=== PATIENT | male | born 1960 | race African-American/Black ===

== ENCOUNTER 2025-05-13 10:49 | Inpatient (IN) | payer OTHER, MEDICAID ==
[~2025-05-13] VITALS: Ht 185.4 cm; Wt 94.3 kg
[2025-05-13 10:55] VITALS: O2SAT 96
[2025-05-13 11:58] LABS: BASOPHILS % 0.5 % (0.0-2.0); EOSINOPHILS % 1.6 % (0.0-5.0); HEMATOCRIT. 46.4 % (42.0-52.0); HEMOGLOBIN. 15.3 g/dL (14.0-18.0); LYMPHOCYTES % 11.6 % (20.0-50.0); MEAN PLATELET VOLUME 8.2 fl (7.4-10.4); MONOCYTES % 5.9 % (2.0-8.0); NEUTROPHILS % 80.4 % (40.0-76.0); PLATELET 195 x1000/uL (130-400); RED BLOOD CELL COUNT 4.91 mill/uL (4.7-6.1); RED CELL DISTRIBUTION WIDTH 15.3 % (11.6-14.6)
[2025-05-13 12:13] LABS: CREATININE 1.0 mg/dL (0.6-1.3); UREA NITROGEN BLOOD 5 mg/dL (9-23)
[2025-05-13 12:14] LABS: TROPONIN I HIGH SENSITIVITY 6 ng/L (3.0-53)
[2025-05-13] MEDS: SODIUM CHLORIDE 0.9% 1,000 ML IV ONE (14:32)
[2025-05-13] MEDS: LORAZEPAM 2MG/ML UD SYRINGE IV SCH (14:32)
[2025-05-13 14:56] LABS: *AMPHETAMINES SCREEN URINE NEGATIVE (NEGATIVE); *BARBITURATES SCREEN URINE NEGATIVE (NEGATIVE); *BENZODIAZEPINES SCREEN URINE NEGATIVE (NEGATIVE); *COCAINE SCREEN URINE PRESUMPTIVE POSITIVE (NEGATIVE); METHADONE URINE SCREEN NEGATIVE (NEGATIVE); OPIATES URINE SCREEN NEGATIVE (NEGATIVE); PHENCYCLIDINE URINE SCREEN NEGATIVE (NEGATIVE)
[2025-05-13 14:57] LABS: CANNABINOID URINE SCREEN NEGATIVE (NEGATIVE); ECSTASY MDMA SCREEN URINE NEGATIVE (NEGATIVE)
[2025-05-13] MEDS ORDERED: LORA-249 MT (17:42)
[2025-05-14] MEDS ORDERED: MAGNESIUM/ALUMINUM HYDROXIDE/SIMETHICONE 30ML UDC PO PRN
[2025-05-14] MEDS ORDERED: ACETAMINOPHEN 325MG TABLET PO PRN ×2
[2025-05-14] MEDS ORDERED: ONDANSETRON HCL 4MG/2ML INJ IV PRN
[2025-05-14] MEDS ORDERED: CLONIDINE 0.1MG TABLET PO PRN
[2025-05-14 01:18] VITALS: BP 142/109; PULSE 71; RESP 21; TEMP 36.696
[2025-05-14] MEDS: NICOTINE 14MG PATCH TD SCH (05:50)
[2025-05-14 08:00] VITALS: BP 132/78; PULSE 86; RESP 16; TEMP 36.5
[2025-05-14] MEDS: PANTOPRAZOLE SODIUM 40 MG/VIAL IV SCH (09:00)
[2025-05-14] MEDS: ENOXAPARIN 40MG/0.4ML SYR SUBCUT SCH (09:19)
[2025-05-14 12:00] VITALS: BP 127/81; PULSE 81; RESP 18; TEMP 36.6; O2SAT 98
[2025-05-14 15:53] LABS: BASOPHILS % 0.5 % (0.0-2.0); EOSINOPHILS % 2.6 % (0.0-5.0); HEMATOCRIT. 44.0 % (42.0-52.0); HEMOGLOBIN. 14.9 g/dL (14.0-18.0); LYMPHOCYTES % 23.5 % (20.0-50.0); MEAN PLATELET VOLUME 8.4 fl (7.4-10.4); MONOCYTES % 6.1 % (2.0-8.0); NEUTROPHILS % 67.3 % (40.0-76.0); PLATELET 204 x1000/uL (130-400); RED BLOOD CELL COUNT 4.72 mill/uL (4.7-6.1); RED CELL DISTRIBUTION WIDTH 15.5 % (11.6-14.6)
[2025-05-14 16:00] VITALS: BP 130/79; PULSE 87; RESP 18; TEMP 36.6; O2SAT 99
[2025-05-14 16:07] LABS: CREATININE 1.0 mg/dL (0.6-1.3)
[2025-05-14 16:08] LABS: LDL CHOLESTEROL 166 mg/dL (5-100); TRIGLYCERIDE 108 mg/dL (0-150); TROPONIN I HIGH SENSITIVITY 10 ng/L (3.0-53); UREA NITROGEN BLOOD 8 mg/dL (9-23)
[2025-05-14 16:09] LABS: ASPARTATE AMINOTRANSFERASE 13 IU/L (<34)
[2025-05-14 16:10] LABS: BILIRUBIN DIRECT 0.1 mg/dL (<=3.0); BILIRUBIN TOTAL 0.5 mg/dL (0.1-1.0); PHOSPHORUS 2.3 mg/dL (2.5-4.9); PROTEIN TOTAL 6.8 g/dL (6.0-8.3)
[2025-05-14 16:12] LABS: T4 FREE 1.12 ng/dL (0.89-1.76)
[2025-05-14 16:38] LABS: INR 1.0
[2025-05-14 20:11] VITALS: BP 143/100; PULSE 103; RESP 20; TEMP 36.7; O2SAT 97
[2025-05-15 00:27] VITALS: BP 156/106; PULSE 78; RESP 19; TEMP 36.4; O2SAT 96
[2025-05-15 04:30] VITALS: BP 141/102; PULSE 89; RESP 18; TEMP 36.6; O2SAT 98
[2025-05-15 07:30] LABS: CREATININE 1.0 mg/dL (0.6-1.3); UREA NITROGEN BLOOD 9 mg/dL (9-23)
[2025-05-15 07:39] LABS: BASOPHILS % 0.3 % (0.0-2.0); EOSINOPHILS % 3.0 % (0.0-5.0); HEMATOCRIT. 44.9 % (42.0-52.0); HEMOGLOBIN. 15.0 g/dL (14.0-18.0); LYMPHOCYTES % 24.6 % (20.0-50.0); MEAN PLATELET VOLUME 8.1 fl (7.4-10.4); MONOCYTES % 7.4 % (2.0-8.0); NEUTROPHILS % 64.7 % (40.0-76.0); PLATELET 214 x1000/uL (130-400); RED BLOOD CELL COUNT 4.87 mill/uL (4.7-6.1); RED CELL DISTRIBUTION WIDTH 15.1 % (11.6-14.6)
[2025-05-15 08:00] VITALS: BP 147/90; PULSE 76; RESP 20; TEMP 36.5; O2SAT 99
[2025-05-15 12:00] VITALS: BP 129/92; PULSE 78; RESP 18; TEMP 36.6; O2SAT 99
[2025-05-15 16:00] VITALS: BP 118/82; PULSE 78; RESP 20; TEMP 36.5; O2SAT 98
[2025-05-15 20:00] VITALS: BP 131/86; PULSE 106; RESP 19; TEMP 36.4; O2SAT 98
[2025-05-15] MEDS: ATORVASTATIN CALCIUM 20MG TABLET PO SCH (20:38)
[2025-05-15] MEDS: FAMOTIDINE 20MG/2ML VIAL IV SCH (20:45)
[2025-05-16] VITALS: BP 146/99; PULSE 68; RESP 19; TEMP 36.7; O2SAT 97
[2025-05-16 04:00] VITALS: BP 154/85; PULSE 82; RESP 18; TEMP 36.2; O2SAT 98
[2025-05-16 08:00] VITALS: BP 128/94; PULSE 76; RESP 18; TEMP 36.2; O2SAT 95
[2025-05-16 12:00] VITALS: BP 133/91; PULSE 87; RESP 18; TEMP 36.7; O2SAT 97
[2025-05-16] MEDS ORDERED: ATOR20TA PO (14:47)
[2025-05-16] MEDS ORDERED: ASPI-1497 MT (14:48)
[2025-05-16 15:17] VITALS: BP 122/85; PULSE 83; RESP 18; TEMP 97.6
== END 2025-05-16 15:50 | disposition home or self-care (01) | DRG 54 ==
LOC: ER 10:49 → 7WST 22:54 → EDBEDREQTM 22:57 → EDBEDREQ 22:57 → ENRESERV 23:22 → 7EST 05-15 15:53
PROVIDERS: ADMIT Internal Medicine; ATTEND Internal Medicine
DX: G43.909 Migraine, unspecified, not intractable, without status migrainosus (principal); F14.90 Cocaine use, unspecified, uncomplicated; F17.200 Nicotine dependence, unspecified, uncomplicated; R42 Dizziness and giddiness; I10 Essential (primary) hypertension; Z71.6 Tobacco abuse counseling
CPT/HCPCS: 36415; 70551; 71045; 80048; 80061; 80076; 80305; 82550; 82962; 83036; 83735; 83880; 84100; 84439; 84443; 84484; 85025; 85379; 93005; 93880; 96361; 96374; 97162; 97166; 99285; A4606; J1308; J1650; J2060; J7030